=== PATIENT | female | born 1995 | race Caucasian/White ===

== ENCOUNTER 2023-03-22 07:59 | Inpatient (IN) ==
[2023-03-22] MEDS ORDERED: Nalbuphine 10 MG/ML 1 ML VIAL IV PRN (09:25)
[2023-03-22] MEDS ORDERED: Buffered Lidocaine 1% SYRIN 1 ml INTRADERM ONE (09:25)
[2023-03-22] MEDS ORDERED: Promethazine INJ(RESTRICTED) 25 MG/ML 1 ml VIAL IV PRN (09:25)
[2023-03-22] MEDS ORDERED: miSOPROStol 100 mcg TAB VAGINAL ONE ×2 (09:25→15:00)
[2023-03-22] MEDS ORDERED: Lactated Ringers 1000 ml BAG 1,000 ML IV ONE (09:25)
[2023-03-22] MEDS ORDERED: Lactated Ringers 1000 ml BAG 1,000 ML IV SCH (10:00)
[2023-03-22 10:06] LABS: Urine Benzodiazepine Screen None Detected (None Detect); Urine Cannabinoids Screen None Detected (None Detect); Urine Opiates Screen None Detected (None Detect)
[2023-03-22] MEDS ORDERED: miSOPROStol 100 mcg TAB PO ONE (13:56)
[2023-03-22 16:42] LABS: ABS Eosinophils 0.2 10^3/uL (0.0-0.5); ABS Lymphocytes 1.8 10^3/uL (1.0-4.8); ABS Monocytes 0.8 10^3/uL (0.0-0.9); ABS Neutrophils 7.9 10^3/uL (1.5-7.6); Eosinophil % 1.5 %; Hematocrit 36.6 % (35-45); Hemoglobin 12.7 g/dL (11.5-14.3); Lymphocyte % 17.3 %; Mean Corpuscular Hgb Conc 34.8 g/dL (31-36); Mean Corpuscular Volume 86.2 fL (80-97); Mean Platelet Volume 8.5 fL (7.5-11.2); Platelet Count 254 10^3/uL (150-450); Red Blood Count 4.25 10^6/uL (3.63-4.92); Red Cell Distribution Width 13.5 % (12-17); White Blood Count 10.7 10^3/uL (3.8-11.8)
[2023-03-22] MEDS ORDERED: Dinoprostone 10 MG VAG.SUPP VAGINAL ONE (18:28)
[2023-03-22] MEDS ORDERED: Morphine PF AMP (0.5MG/ML) 5 MG/10 ML AMP ONE (22:42)
[2023-03-22] MEDS ORDERED: Bupivacaine-MPF SPINAL 7.5 MG/ML - 2ML AMP ONE (22:42)
[2023-03-22] MEDS ORDERED: Ondansetron 4 mg VIAL 2 MG/ML 2 ml VIAL ONE (22:42)
[2023-03-22] MEDS ORDERED: Phenylephrine 40 mcg/mL 10mL (400mcg) SYRINGE ONE (22:42)
[2023-03-22] MEDS ORDERED: Oxytocin 10 UNITS/ML 1 ML VIAL ONE (22:47)
[2023-03-23] MEDS ORDERED: ceFOXitin 2 GM IVPREMIX 2 GM/50 ML BAG IVPB ONE (00:43)
[2023-03-23] MEDS ORDERED: Ondansetron 4 mg VIAL 2 MG/ML 2 ml VIAL IV PRN (00:45)
[2023-03-23] MEDS ORDERED: Naloxone 0.4 mg VIAL 0.4 mg/ml 1 ml VIAL IV PUSH PRN (00:45)
[2023-03-23] MEDS ORDERED: Metoclopramide 5 MG/ML VIAL (10 mg) IV PRN (00:45)
[2023-03-23] MEDS ORDERED: Acetaminophen IV 1 GM/100ML 1,000 MG/100 ML BAG IV PRN (00:45)
[2023-03-23] MEDS ORDERED: Glycerin ADULT 2.4 gm SUPP PR PRN (02:13)
[2023-03-23] MEDS ORDERED: Dibucaine 1% OINT 28.35 GM TUBE PR PRN (02:13)
[2023-03-23] MEDS ORDERED: Witch Hazel PAD JAR TOPICAL PRN (02:13)
[2023-03-23] MEDS ORDERED: Oxytocin in LR 20,000 MILLI.UNIT/1,000 ML BAG IV SCH (02:15)
[2023-03-23] MEDS ORDERED: Lactated Ringers 1000 ml BAG 1,000 ML IV SCH (03:00)
[2023-03-23 12:01] LABS: Urine Appearance Clear; Urine Bilirubin Negative (Negative); Urine Blood 1+ (Negative); Urine Color Straw; Urine Glucose Negative (Negative); Urine Ketones Negative (Negative); Urine Nitrite Negative (Negative); Urine Protein Negative (Negative); Urine Specific Gravity 1.002 (1.002-1.030); Urine Urobilinogen Negative (Negative)
[2023-03-23 12:05] LABS: Urine Bacteria Absent (Absent); Urine Red Blood Cell Trace(0-2/hpf) (Absent); Urine White Blood Cell Absent (Absent)
[2023-03-24 06:49] LABS: ABS Eosinophils 0.2 10^3/uL (0.0-0.5); ABS Lymphocytes 1.6 10^3/uL (1.0-4.8); ABS Monocytes 0.7 10^3/uL (0.0-0.9); ABS Neutrophils 6.9 10^3/uL (1.5-7.6); ABS Nucleated RBC 0.01 10^3/ul; Eosinophil % 1.9 %; Hematocrit 29.8 % (35-45); Hemoglobin 10.4 g/dL (11.5-14.3); Lymphocyte % 16.5 %; Mean Corpuscular Hemoglobin 30.4 pg (27-33); Mean Corpuscular Hgb Conc 34.9 g/dL (31-36); Mean Corpuscular Volume 87.1 fL (80-97); Mean Platelet Volume 8.1 fL (7.5-11.2); Nucleated Red Blood Cells % 0.1 /100 WBC (0.0-0.4); Platelet Count 187 10^3/uL (150-450); Red Blood Count 3.42 10^6/uL (3.63-4.92); Red Cell Distribution Width 13.9 % (12-17); White Blood Count 9.4 10^3/uL (3.8-11.8)
[2023-03-25] MEDS ORDERED: Sodium Phosphate ADULT ENEMA 133 ML BTL PR ONE (15:30)
[2023-03-26 08:33] VITALS: BP 120/63
== END 2023-03-26 11:19 | disposition home or self-care (01) | DRG 540 ==
LOC: MCHOBOUT 07:59 → MCHOB 09:31
PROVIDERS: ADMIT Obstetrics & Gynecology; ATTEND Obstetrics & Gynecology